=== PATIENT | male | born 1950 | race Caucasian/White ===

== ENCOUNTER 2017-02-11 09:56 | Emergency (ER) | payer MEDICARE ==
[2017-02-11 10:39] LABS: #Basophils 0.1 thou/uL (0.0-0.2); #Eosinphils 0.5 thou/uL (0.0-0.7); #Lymphocytes 1.1 thou/uL (1.20-3.40); #Monocytes 0.7 thou/uL (0.11-0.59); #Neutrophils 4.9 thou/uL (1.40-6.50); %Basophils 0.9 % (0.0-1.0); %Eosinophils 6.7 % (0.0-10.0); %Lymphocytes 15.6 % (21.0-51.0); %Monocytes 9.4 % (0.0-10.0); %Neutrophils 67.4 % (42.0-75.0); Hemoglobin 14.2 g/dL (14.0-18.0); Mean Corpuscular HGB CONC 34.7 g/dL (32.0-36.0); Mean Corpuscular Hemoglobin 31.3 pg (27.0-31.0); Mean Corpuscular Volume 90.2 fl (80.0-94.0); Mean Platelet Volume 5.8 fL (7.4-10.4); Platelet Count 232 thou/uL (130-400); RBC Distribution Width 10.8 % (11.5-14.5); Red Blood Cell (RBC) Count 4.55 mill/uL (4.70-6.10); White Blood Cell (WBC) Count 7.2 thou/uL (4.8-10.8)
[2017-02-11 10:42] LABS: PTT 32.9 SEC (22.9-36.1); Prothrombin Time 13.5 SEC (12.0-14.7)
[2017-02-11 11:31] LABS: CKMB 1.6 ng/mL (0-6.6)
[2017-02-11 12:00] LABS: Bilirubin Negative (Negative); Blood, Urine Trace (Negative); Clarity Clear (Clear); Glucose, Urine (Dipstick) 100 mg/dL (Negative); Leukocyte Negative (Negative); Nitrite Negative (Negative); Protein, Urine (Dipstick) Negative (Neg-Trace)
[2017-02-11 12:02] LABS: RBC/HPF 0-3 HPF (0-3); Squamous Epithelial 0-3 HPF (0-3)
[2017-02-11 12:05] LABS: ALT (SGPT) 13 U/L (8-55); AST (SGOT) 18 U/L (5-34); Albumin 4.4 g/dL (3.4-4.8); Alkaline Phosphatase 62 U/L (40-150); Anion Gap 12 mmol/L (10-20); Bilirubin, Total 0.9 mg/dL (0.2-1.2); CK (CPK) 113 U/L (30-200); Calc. Creatinine Clearance 0 mL/min (70-130); Calcium 9.3 mg/dL (7.8-10.44); Carbon Dioxide 22 mmol/L (23-31); Chloride 109 mmol/L (98-107); Estimated GFR-MDRD 74; Globulin 2.5 g/dL (2.4-3.5); Glucose 216 mg/dL (80-115); Potassium 3.8 mmol/L (3.5-5.1); Protein, Total 6.9 g/dL (5.8-8.1); Sodium 139 mmol/L (136-145)
[2017-02-11 12:07] LABS: BUN (Urea Nitrogen) 24 mg/dL (8.4-25.7)
--- NOTE | 2017-02-11 20:29 | CT ---
CT OF THE BRAIN WITHOUT CONTRAST: Date: 02-11-17 Comparison: 09-08-12 FINDINGS: The ventricles are normal in size with no shift. No intracranial bleeding, mass, or sign of acute st roke was found. 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 This is not new. The calvarium appears intact. The visible paranasal sinuses showed some minor mucosal thickening in front of the ethmoids and right maxillary sinus, but they are largely cl ear. 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 Mastoid air cells are clear. IMPRESSION: Chronic changes but no acute findings. Exam little different than the 2013 study. POS: HOME
== END 2017-02-11 12:11 | disposition home or self-care (01) ==
LOC: BURERS 09:56
DX: J02.9 Acute pharyngitis, unspecified (principal); I10 Essential (primary) hypertension; E78.00 Pure hypercholesterolemia, unspecified; E11.9 Type 2 diabetes mellitus without complications; Z79.899 Other long term (current) drug therapy
CPT/HCPCS: 70450; 80053; 81003; 81015; 82553; 84484; 85025; 85610; 85730; 87081; 87430; 93005; 94760